=== PATIENT | female | born 1955 | race Caucasian/White ===

== ENCOUNTER 2024-04-06 10:35 | Emergency (ER) | payer MEDICARE, SELFPAY ==
[2024-04-06 10:36] VITALS: BP 137/86; PULSE 77; RESP 18; TEMP 36.9; O2SAT 97; BMI 23.3
[2024-04-06] MEDS: TET/DIPHTH/PERT-ADULT 0.5ML SYRINGE 0.5 ML IM (10:59)
[2024-04-06 11:00] VITALS: BP 135/94; PULSE 74; RESP 18; O2SAT 96
--- NOTE | 2024-04-06 11:03 | CT_ITS ---
PROCEDURE INFORMATION: Exam: CT Head Without Contrast Exam date and time: 04/06/2024 11:28 AM Age: 69 years old Clinical indication: Injury or trauma; Additional info: Cattle gate vs anterior head TECHNIQUE: Imaging protocol: Computed tomography of the head without contrast. Radiation optimization: All CT scans at this facility use at least one of these dose optimization techniques: automated exposure control; mA and/or kV adjustment per patient size (includes targeted exams where dose is matched to clinical indication); or iterative reconstruction. COMPARISON: No relevant prior studies available. FINDINGS: Brain: No evidence of intracranial hemorrhage. No areas of mass effect edema or midline shift. Small hypodensity along the anterior limb of the right internal capsule that may represent incidental perivascular space or old lacunar infarct. Cortical sulci are unremarkable for age. Cerebral ventricles: Unremarkable for age. Paranasal sinuses: Visualized sinuses are unremarkable. No fluid levels. Mastoid air cells: Visualized mastoid air cells are well aerated. Bones: Unremarkable. No acute fracture. Soft tissues: Unremarkable. IMPRESSION: No acute intracranial abnormalities.
[2024-04-06 11:30] VITALS: BP 144/82; PULSE 71; RESP 20; O2SAT 96
[2024-04-06 12:00] VITALS: BP 134/82; PULSE 64; RESP 20; O2SAT 97
[2024-04-06 12:30] VITALS: BP 143/86; PULSE 70; RESP 18; O2SAT 97
--- NOTE | 2024-04-06 13:20 | PC.NURSE ---
DR MALCOLM AT BEDSIDE
--- NOTE | 2024-04-06 13:43 | [facility].EDGENADL ---
Discharge Plan Disposition Chief Complaint: Skin/Abscess/Foreign Body Referrals Follow up/Referrals: Sam Constantino DO [Primary Care Provider] - See instructions Activity Restrictions/Add. Instructions Additional Instructions/Restrictions: At this time it was felt you are safe to be discharged home. If new or worsening symptoms please do not hesitate to return the emergency department. Please follow-up with your family doctor in 7 to 10 days to see if your leo are ready to come out. If signs of infection such as pus leaking from the wound please do not hesitate to return the emergency department for continued evaluation. It is okay to shower, do not Steel her head in water. Clinical Impressions Clinical Impression: Blunt trauma, Laceration of scalp Instructions Patient Instructions: DI for Skin Abscess Print Language Print Language: Croatian Discharge ED Provider: Rafal Hughes General Adult HPI General Chief complaint: Skin/Abscess/Foreign Body Stated complaint: ao cut on head Time Seen by Provider: 04/06/24 11:03 Mode of Arrival: Ambulatory Source of Information: Patient Limitations: No Limitations Description of Symptoms (Recalled from ER Triage Doc. by RN): lac to left top of scalp History of Present Illness HPI narrative: Patient is a 69-year-old female who presents emergency department for evaluation of head trauma. Patient was working on a cattle gate when a piece of metal from the gait that weighs a significant amount inadvertently hit her in the head. No loss of consciousness. She has a laceration over her frontal scalp. Tdap is not up-to-date. No other acute complaints at this time. Related Data Allergies Allergy/AdvReac Type Severity Reaction Status Date / Time No Known Allergies Allergy Verified 04/06/24 10:52 [facility] Disclaimer: The information contained in this section may have been updated after the patient was seen, as this information can be updated by other users. Social History Smoking Status: Never smoker alcohol intake: never current occupational status: other Travel in the last 8 weeks: None ROS Obtained: Yes Systems reviewed as appropriate & no additional complaints except as documented Physical Exam General General appearance: alert and in no apparent distress Head Head exam: normocephalic and other (3.5 cm linear laceration over the frontal scalp that is oozing blood. No arterial hemorrhage) Eye Eye exam: Present PERRL and EOMI ENT ENT exam: Present mucous membranes moist Neck Neck exam: Present normal inspection Chest Chest inspection: Present normal inspection and symmetric chest wall rise Respiratory Respiratory exam: Absent respiratory distress Cardiovascular Cardiovascular exam: Present regular rate and normal rhythm Abdominal Exam Abdominal exam: Present soft Extremities Exam Extremities exam: Present normal inspection Neurological Exam Neurological exam: Present alert and CN II-XII intact; Absent motor sensory deficit Psychiatric Psychiatric exam: Present normal affect Skin Skin exam: Present warm and dry Medical Decision Making Medical Records Screening: Per USPSTF and CDC recommendations, given the prevalence of disease in our region, it is our hospital?s policy to screen for HIV and viral Hepatitis for all patients aged 18 and over and those with ongoing risk factors. Jose M Inquiry Pt receiving controlled substance: No Vital Signs: 04/06/24 10:36 04/06/24 11:00 04/06/24 11:30 Temperature 98.4 F Temperature Source Oral Pulse Rate 74 71 Pulse Rate [Right] 77 Respiratory Rate 18 18 20 Blood Pressure 135/94 H 144/82 H Blood Pressure [Right Arm] 137/86 Blood Pressure Mean 104 Blood Pressure Mean [Right Arm] 103 02 Sat by Pulse Oximetry 97 96 96 Oxygen Delivery Method Room Air Room Air Room Air 04/06/24 12:00 04/06/24 12:30 Temperature Temperature Source Pulse Rate 64 70 Pulse Rate [Right] Respiratory Rate 20 18 Blood Pressure 134/82 143/86 H Blood Pressure [Right Arm] Blood Pressure Mean Blood Pressure Mean [Right Arm] 02 Sat by Pulse Oximetry 97 97 Oxygen Delivery Method Room Air Room Air Orders (Tests/Meds): ED MEDICATIONS Discontinued Medications Generic Name Dose Route Start Last Admin Trade Name Freq PRN Reason Stop Dose Admin Lidocaine/Epinephrine 10 ml 04/06/24 10:55 Lidocaine 1% W/Epi 1:100,000 20ml Vial SQ 04/06/24 10:56 ONCE ONE Tetanus/Reduced Diphtheria/Acell Pertussis 0.5 ml 04/06/24 10:55 04/06/24 10:59 Tet/Diphth/Pert-Adult 0.5ml Syringe IM 04/06/24 10:56 0.5 ml .ONCE ONE Administration ORDERS Category Date Time Status CT head/brain wo con Stat Cat Scan 04/06/24 11:03 Completed Medical Decision Narrative: In summary patient is a 69-year-old female with past medical history described above who presents emergency department for evaluation of head trauma. Patient is hemodynamically stable upon arrival. Patient has no neck pain that would necessitate CT imaging of cervical spine however given blunt trauma to the head with obvious laceration noncontrasted CT scan of the head will be obtained given that subdural hematoma is a consideration. Noncontrasted CT scan informally reviewed by me, no acute lobar hemorrhage. Formal read shows no acute pathology. Tdap was updated and wound underwent primary repair was stable at bedside with good closure. Patient will follow-up on an outpatient basis with her family doctor and was given return precautions verbalized understanding Procedure: Procedure performed laceration repair. Procedure performed by Rafal Hughes. Location was frontal scalp. Length was 3.5 cm, linear in orientation. Wound was approximated after being cleaned with Hibiclens and sterile water with 4 leo. Hemostasis achieved. Patient tolerated the procedure well and it was facilitated by approximately 5 cc of 1% lidocaine with epinephrine for anesthesia which was achieved. Critical Care Critical Care Time Critical Care Time: No
[2024-04-06 13:57] VITALS: BP 170/92; PULSE 66; RESP 18; TEMP 36.9; O2SAT 98
== END 2024-04-06 13:58 | disposition home or self-care (01) ==
LOC: ER 11:24
PROVIDERS: Emergency Provider Emergency Medicine; PCP Family Medicine
DX: S01.01XA Laceration without foreign body of scalp, initial encounter (principal); W22.8XXA Striking against or struck by other objects, initial encounter; Y92.9 Unspecified place or not applicable; Z23 Encounter for immunization
CPT/HCPCS: 12002; 70450; 90471; 90715; 99284